=== PATIENT | male | born 1985 | race Caucasian/White ===

== ENCOUNTER → 2021-06-15 | Day surgery (SDC) | payer OTHER ==
[~2021-06-15] VITALS: Ht 190.5 cm; Wt 88.9 kg
[2021-06-15 08:16] LABS: BASOPHIL 0.9 % (0-2); EOSINOPHIL 2.8 % (0-5); HCT 40.6 % (42.0-52.0); HGB 14.3 g/dl (13.2-18.0); LYMPHOCYTE 39.7 % (15-48); MCH 30.6 pg (25.0-31.0); MCHC 35.2 g/dL (32.0-36.0); MCV 86.9 fL (78.0-100.0); MONOCYTE 10.9 % (0-12); MPV 9.7 fL (6.0-9.5); NEUTROPHIL 45.7 % (41-80); NRBC 0; PLT 202 K/uL (150-400); RBC 4.67 M/uL (4.70-6.00); RDW 12.4 % (11.5-14.0)
== END | disposition home or self-care (01) ==
LOC: FAS 07:40
PROVIDERS: Oral & Maxillofacial Surgery
DX: K02.9 Dental caries, unspecified (principal); K04.7 Periapical abscess without sinus
CPT/HCPCS: 36415; 85025; J1100; J1170; J2250; J2405; J2704; J3010; J7120